=== PATIENT | female | born 1980 | race Caucasian/White ===

== ENCOUNTER 2024-07-16 05:48 | Day surgery (SDC) | payer BC ==
[2024-07-12 08:35] VITALS: BMI 28.2
[2024-07-12 09:05] LABS: Hematocrit 40.7 % (34.9-44.5); Hemoglobin 13.4 g/dL (12.0-15.5); Mean Corpuscular HGB CONC 32.9 g/dL (32.0-36.0); Mean Corpuscular Hemoglobin 28.9 pg (27.0-33.0); Mean Corpuscular Volume 87.9 fL (81.6-98.3); Mean Platelet Volume 10.1 fL (7.4-10.4); Platelet Count 245 10x3/uL (150-450); RBC Distribution Width 13.1 % (11.5-14.5); Red Blood Cell (RBC) Count 4.63 10x6/uL (3.90-5.03); White Blood Cell (WBC) Count 7.5 10x3/uL (3.5-10.5)
[2024-07-16] MEDS ORDERED: Methylergonovine 0.2 MG/ML VIAL ONE (06:21)
[2024-07-16] MEDS ORDERED: PROPOFOL 20 ML ONE (06:52)
[2024-07-16] MEDS ORDERED: CEFAZOLIN 2 GM VIAL ONE (06:55)
[2024-07-16] MEDS ORDERED: Midazolam HCl 2 mg/2 ml Vial ONE (07:19)
[2024-07-16] MEDS ORDERED: Ondansetron PF 4 MG/2 ML Vial ONE (08:08)
[2024-07-16] MEDS ORDERED: Lidocaine 4% PF 5 ML AMP ONE (08:08)
[2024-07-16] MEDS ORDERED: Lidocaine 2% PF 5 ML VIAL ONE (08:08)
[2024-07-16] MEDS ORDERED: SUCCINYLCHOLINE/SOD CL,ISO/PF 200 MG/10 ML SYRINGE FS ONE (08:08)
[2024-07-16] MEDS ORDERED: Dexamethasone 4 mg/ml Vial ONE (08:08)
== END 2024-07-16 08:57 | disposition home or self-care (01) ==
LOC: CSHSDC 05:48
PROVIDERS: ATTEND Obstetrics & Gynecology
PROC: 0UVC0ZZ Restriction of Cervix, Open Approach (ICD-10-PCS; principal; 2024-07-16)
DX: O09.211 Supervision of pregnancy with history of pre-term labor, first trimester (principal); O09.521 Supervision of elderly multigravida, first trimester; O99.351 Diseases of the nervous system complicating pregnancy, first trimester; G43.909 Migraine, unspecified, not intractable, without status migrainosus; Z3A.11 11 weeks gestation of pregnancy; Z98.890 Other specified postprocedural states
CPT/HCPCS: 85027; 86850; 86900; 86901; J1100; J2210; J2250; J2405; J2704